=== PATIENT | male | born 1985 | race Caucasian/White ===

== ENCOUNTER → 2022-04-19 | Day surgery (SDC) | payer OTHER ==
[~2022-04-19] VITALS: Ht 177.8 cm; Wt 86.2 kg
[~2022-04-19] MED LIST: ACETAMINOPHEN500 M1 PO; COLACE100 MG PO; MOTRIN600 MG PO; OXY-IR 5MG5 MG PO
== END | disposition home or self-care (01) ==
LOC: FAS 07:53 → FMS 09:00 → FAS 09:00 → EDSTATUS 09:00
DX: N62 Hypertrophy of breast (principal); Z72.89 Other problems related to lifestyle
CPT/HCPCS: J1644; J2250; J2704; J3010; Q9968